=== PATIENT | male | born 1925 | race Caucasian/White ===

== ENCOUNTER 2017-07-14 14:57 | Emergency (ER) | payer MEDICARE ==
[~2017-07-14] VITALS: Ht 180.3 cm; Wt 84.0 kg
[~2017-07-14 14:57] MED LIST: ACYCLOVIR800 MG PO; AMOXICILLIN500 MG PO; ASPIRIN ADULT L81 MG PO; AUGMENTIN875 MG OR; COUMADIN2.5 MG; COUMADIN5 MG; DIGOX0.125 MG PO; DIGOXIN0.125 MG PO; DOXYCYCL HYC100 MG PO; ECHINACEA350 MG PO; ESSIAC TEA; HYDROCORTISO2.51 EX; LEVAQUIN750 MG PO; LIPITOR10 M1 PO; LISINOPRIL20 MG PO; METOPROL TAR100 MG PO; METOPROL TAR25 MG PO; METOPROLOL TAR100 MG PO; NO HOME MEDS; PERCOCET 5/325M1 TAB OR; SIMVASTATIN10 MG PO; TOPROL XL50 MG PO; TUMERIC; ULTRAM50 M1 PO; VIT C/BIOFLV1000 MG PO; WARFARIN SODIU2.5 MG PO; WARFARIN5 MG PO; ZESTRIL/PRI20 MG/TAB PO; ZOCOR20 M1 PO; ZPAK PO
[2017-07-14 15:59] LABS: HEMATOCRIT 42.6 % (39.0-50.0); HEMOGLOBIN 13.8 g/dl (14.0-18.0); IMMATURE GRANULOCYTES 0.2 % (0.0-1.0); MEAN CELL VOLUME 94.7 fL CALC (80.0-100.0); MEAN CORPUSCULAR HGB 30.7 pG CALC (26.0-32.0); MEAN CORPUSCULAR HGB CONC 32.4 g/L CALC (32.0-36.0); NEUT# 6.55 thou/uL (1.82-7.42); RED BLOOD COUNT 4.5 mill/uL (4.70-6.10)
[2017-07-14] MEDS ORDERED: NAPROSYN500 MG PO (16:52)
[2017-07-14] MEDS ORDERED: CLINDAMYCIN300 M1 PO (16:52)
[2017-07-14 16:54] VITALS: BP 145/94
== END 2017-07-14 17:00 | disposition home or self-care (01) ==
LOC: ED 14:57
PROVIDERS: Emergency Medicine
DX: L03.116 Cellulitis of left lower limb (principal); S80.262A Insect bite (nonvenomous), left knee, initial encounter; I10 Essential (primary) hypertension; I48.91 Unspecified atrial fibrillation; W57.XXXA Bitten or stung by nonvenomous insect and other nonvenomous arthropods, initial encounter; Z85.118 Personal history of other malignant neoplasm of bronchus and lung; Z85.89 Personal history of malignant neoplasm of other organs and systems